=== PATIENT | male | born 1980 | race Caucasian/White ===

== ENCOUNTER 2019-08-07 02:01 | Emergency (ER) | payer OTHER ==
[~2019-08-07] VITALS: Ht 190.5 cm; Wt 77.1 kg
[2019-08-07] MEDS ORDERED: MORPHINE SULFATE 5 MG/ML VIAL IM ONE (02:30)
[2019-08-07] MEDS ORDERED: CYCLOBENZAPRINE HCL 10 MG TAB PO ONE (02:30)
[2019-08-07] MEDS ORDERED: DEXAMETHASONE SOD PHOS 10 MG/1 ML VIAL IM ONE (02:30)
[2019-08-07] MEDS ORDERED: MORPHINE SULFATE INJ 4 MG/ML INJ 1ML ONE (02:40)
[2019-08-07] MEDS ORDERED: DEXAMETHASONE SOD PHOS 10 MG/1 ML VIAL ONE (02:40)
[2019-08-07] MEDS ORDERED: CYCLOBENZAPRINE HCL 10 MG TAB ONE (02:40)
== END 2019-08-07 03:00 | disposition home or self-care (01) ==
LOC: FSED 02:01
DX: M51.26 Other intervertebral disc displacement, lumbar region (principal)
CPT/HCPCS: 99283; J1100; J2270

== ENCOUNTER 2020-05-19 10:04 | Emergency (ER) | payer OTHER ==
[~2020-05-19] VITALS: Ht 185.4 cm; Wt 95.3 kg
[2020-05-19] MEDS ORDERED: DEXAMETHASONE SOD PHOS INJ 4 MG/ML VIAL IM ONE (11:15)
[2020-05-19] MEDS ORDERED: DEXAMETHASONE SOD PHOS 10 MG/1 ML VIAL IM ONE (11:15)
[2020-05-19] MEDS ORDERED: DEXAMETHASONE SOD PHOS INJ 4 MG/ML VIAL ONE (11:24)
[2020-05-19] MEDS ORDERED: CEFDINIR300 MG PO (11:25)
[2020-05-19] MEDS ORDERED: NASONEX17 GM (11:25)
[2020-05-19 11:49] VITALS: BP 137/76
== END 2020-05-19 11:49 | disposition home or self-care (01) ==
LOC: FSED 11:10
DX: J01.90 Acute sinusitis, unspecified (principal)
CPT/HCPCS: 87400; 99283; J1100

== ENCOUNTER 2020-11-01 09:18 | Emergency (ER) | payer OTHER ==
[~2020-11-01] VITALS: Ht 185.4 cm; Wt 93.0 kg
[~2020-11-01 09:18] MED LIST: CEFDINIR300 MG PO; NASONEX17 GM
[2020-11-01] MEDS ORDERED: PRILOSEC OTC20 MG (09:34)
[2020-11-01] MEDS ORDERED: SODIUM CHLORIDE 0.9% 1000ML 1,000 ML IV STA (09:47)
[2020-11-01] MEDS ORDERED: PROVENTIL HFA6.7 GM INH (09:58)
[2020-11-01] MEDS ORDERED: STROMECTOL3 MG PO (09:58)
[2020-11-01] MEDS ORDERED: ONDANSETRON ODT4 MG PO (09:58)
[2020-11-01] MEDS ORDERED: TYLENOL # 31 EA PO (09:58)
[2020-11-01] MEDS ORDERED: DEXAMETHASONE4 MG PO (09:58)
[2020-11-01] MEDS ORDERED: CEFDINIR300 MG PO (09:58)
[2020-11-01] MEDS ORDERED: CEFTRIAXONE 1 GM VIAL IV ONE (10:00)
[2020-11-01] MEDS ORDERED: KETOROLAC TROMETHAMINE 30 MG/ML VIAL IV ONE (10:00)
[2020-11-01] MEDS ORDERED: DEXAMETHASONE SOD PHOS 10 MG/1 ML VIAL IV ONE (10:00)
[2020-11-01] MEDS ORDERED: ONDANSETRON HCL INJ 2MG/ML 2ML 2 MG/ML VIAL IV ONE (10:00)
[2020-11-01] MEDS ORDERED: HYDROCODONE/APAP 5MG-325MG TAB PO ONE (10:00)
[2020-11-01] MEDS ORDERED: ONDANSETRON HCL INJ 2MG/ML 2ML 2 MG/ML VIAL ONE (10:21)
[2020-11-01] MEDS ORDERED: CEFTRIAXONE 1 GM VIAL ONE (10:21)
[2020-11-01] MEDS ORDERED: SODIUM CHLORIDE 0.9% 1000ML 1,000 ML ONE (10:21)
[2020-11-01] MEDS ORDERED: HYDROCODONE/APAP 5MG-325MG TAB ONE (10:21)
[2020-11-01] MEDS ORDERED: DEXAMETHASONE SOD PHOS INJ 4 MG/ML VIAL ONE (10:21)
[2020-11-01] MEDS ORDERED: KETOROLAC TROMETHAMINE 30 MG/ML VIAL ONE (10:21)
[2020-11-01 11:23] VITALS: BP 104/72
== END 2020-11-01 11:21 | disposition home or self-care (01) ==
LOC: FSED 09:47
DX: R06.02 Shortness of breath (principal); U07.1 COVID-19; J12.82 Pneumonia due to coronavirus disease 2019; R05 Cough; R00.0 Tachycardia, unspecified; K21.9 Gastro-esophageal reflux disease without esophagitis; J43.9 Emphysema, unspecified
CPT/HCPCS: 71046; 80053; 85025; 96374; 96375; 99284; J0696; J1100 ×2; J1885; J2405; J7030